=== PATIENT | male | born 1950 | race African-American/Black ===

== ENCOUNTER 2017-02-06 13:24 | Emergency (ER) | payer MEDICARE, OTHER ==
[2017-03-10] MEDS ORDERED: NOVOPEN SC (08:29)
[2017-03-10] MEDS ORDERED: LIPITOR40 PO (08:29)
[2017-03-10] MEDS ORDERED: NORV10 PO (08:30)
[2017-03-10] MEDS ORDERED: HCTZ25B PO (08:31)
[2017-03-10] MEDS ORDERED: NOVOLOG SC (08:52)
[2017-03-10] MEDS ORDERED: LANTUS SC (09:08)
== END 2017-02-06 15:38 | disposition home or self-care (01) ==
LOC: ER 13:24
DX: S80.01XA Contusion of right knee, initial encounter (principal); I10 Essential (primary) hypertension; E11.9 Type 2 diabetes mellitus without complications; W19.XXXA Unspecified fall, initial encounter
CPT/HCPCS: 73560-RT; 73564-RT; 99284; A9270-GY